=== PATIENT | male | born 1935 | race Caucasian/White ===

== ENCOUNTER 2016-11-18 06:19 | Day surgery (SDC) | payer OTHER ==
[2016-11-15 12:50] LABS: HEMATOCRIT 45.6 % (40.0-51.0); HEMOGLOBIN 14.8 g/dL (13.6-17.8)
[2016-11-15 13:05] LABS: BUN (BLOOD UREA NITROGEN) 23 MG/DL (6-23); CALCIUM, SERUM 9.6 MG/DL (8.5-10.4); CHLORIDE, SERUM 108 MMOL/L (96-112); CO2 (CARBON DIOXIDE) 29 MMOL/L (24-34); CREATININE 1.63 MG/DL (0.70-1.30); GFR AFRICAN AMERICAN 45 ML/MIN (>=60); GFR NON AFRICAN AMERICAN 39 ML/MIN (>=60); GLUCOSE, SERUM 90 MG/DL (60-99); POTASSIUM, SERUM 4.6 MMOL/L (3.5-5.3); SODIUM, SERUM 141 MMOL/L (135-148)
--- NOTE | ~2016-11-18 | OP ---
Record Of Operation [facility] [address] [place]. [address] NAME: TIM HALL : 33 STATUS : [facility]#: [id number] AGE: 81 ADM/REG DATE : 11/18/16 MR#: [id number] REPORT SERV DATE: 11/18/16 DICTATED BY: Abril ORTIZ DATE: 11/18/16 REPORT STATUS : Draft TRANSCRIBED BY: MODBenny DATE: 11/18/16 DATE OF PROCEDURE: 11/18/2016 PREOPERATIVE DIAGNOSES: 1. Left distal ureteral stone. 2. Bladder tumor. 3. History of prostate cancer. POSTOPERATIVE DIAGNOSES: 1. Left distal ureteral stone. 2. Left anterior bladder wall tumor. 3. History of prostate cancer. PROCEDURES: 1. Cystoscopy, left retrograde pyelography, ureteral dilation, ureteroscopy, left double-J stent placement. 2. TURBT (2 to 3 cm lesion). 3. Examination under anesthesia. DRAINS: 1. 7-Czech x 22 cm left contour double-J stent. 2. 22-Czech two-way Hewitt catheter. BRIEF HISTORY: Mr. Hall is an 81-year-old white male, seen by me recently with gross hematuria. CT urogram showed a 4 mm left distal ureteral stone without significant obstruction, bilateral renal cysts. He also had some BPH. Office cystoscopy showed a 2 to 3 cm papillary tumor on the anterior bladder wall. He also gave a history of prostate cancer although no pathology was noted. His PSA was 16.8. We discussed the options and decided proceed with cysto, retrograde, possible ureteroscopy with stone extraction, stent placement, and TURBT. The risks of bleeding, infection, anesthesia, injury to adjacent organs, need for stent, inability to eradicate disease, etc., were discussed. There were no unanswered questions. DESCRIPTION OF PROCEDURE: Under excellent general anesthesia, the patient was prepped and draped in the standard lithotomy position. Digital exam revealed a 2+ to 3+ symmetric prostate gland with some induration on the right in the mid gland area. He had a normal- appearing penis and a nondistended lower abdomen. Cystoscopy was performed with the 30 and 70 degree lens, that revealed a normal anterior urethra. Posterior urethra showed trilobar BPH with some intravesicular extension. He had mild to moderate trabeculation throughout and his orifices were fairly difficult to find. I ultimately found the left orifice but was not able to cannulate it with a cone-tipped catheter. I inserted an angled glidewire through a 5-Czech open-ended ureteral catheter and advanced the ureteral catheter to the level of the kidney. The kidney appeared nondilated with contrast injection. I reinserted the wire and could see a stone alongside it at the level noted on CT scan. I tried to insert the inner cannula of a 9/11 ureteral access sheath, but was unsuccessful in dilating more than about a centimeter of his ureter. I did not know if this was due to the stone or simply a tightened Record Of Operation [address] [place]. [address] NAME: TIM HALL : 33 STATUS : [facility]#: [id number] AGE: 81 ADM/REG DATE : 11/18/16 MR#: [id number] REPORT SERV DATE: 11/18/16 DICTATED BY: Abril ORTIZ DATE: 11/18/16 REPORT STATUS : Draft TRANSCRIBED BY: LUIS DATE: 11/18/16 intravesical ureter, but I did not want to proceed any further given the fact that we had to proceed with a bladder tumor resection. I therefore placed a 7-Czech x 22 cm Contour double-J stent which coiled nicely in the renal pelvis and bladder. We will plan on delayed stone therapy. I then directed myself to the tumor which was on the left anterior wall in a very difficult location. I resected it gently with the biopsy forceps and took the first specimen as left anterior bladder wall tumor. It had a papillary appearance with a moderate-sized stalk and appeared low grade. I then took the specimen as tumor base and using the Bugbee electrode, thoroughly fulgurated the tumor site. No visible tumor was left. I inserted a 22-Czech two-way Hewitt catheter and planned to discharge Mr. Hall as an outpatient with the following instructions: DISCHARGE INSTRUCTIONS: 1. Home today with Hewitt catheter. Okay to remove that in two days either in my office or at home. 2. Follow up in my office in one week to review pathology and consider further stone management. 3. Hydrocodone 5/325 one to two p.o. q.4 hours p.r.n. pain, #20 and Pyridium 200 mg one p.o. t.i.d. p.r.n. bladder pain, #15 with three refills. 4. He is also interested in pursuing further evaluation of his prostate cancer as I told him it would be helpful if he could get his previous pathology report and any PSAs so we can try to make sense of things and will go from there after we have taken care of his acute urologic needs. KARINA/LUIS Abril Ortiz M.D. / [id number] CC: Rene Farah M.D.
[~2016-11-18 06:19] MED LIST: ASA5GR PO; CO Q-10100 MG PO; FISH OIL1200 MG PO; GLUCCHONDR PO; LEVOTHYROXIN100 MCG PO; LIPITOR20 PO; LOP25 PO; LYSINE1000 MG PO; MULTIPLE VIT PO; NIACIN 500 PO; NORV5 PO; PLAVIX PO; VITAMIN B-121000 MC1 SL; garlic PO; milk thistle PO
[2016-11-22] MEDS ORDERED: T PO (11:40)
[2016-11-22] MEDS ORDERED: NORCO1 TA1 PO (11:40)
== END 2016-11-18 14:12 | disposition home or self-care (01) ==
LOC: SDC 06:19
PROC: 0T778DZ Dilation of Left Ureter with Intraluminal Device, Via Natural or Artificial Opening Endoscopic (ICD-10-PCS; principal; 2016-11-18 08:45)
PROC: 0T5B8ZZ Destruction of Bladder, Via Natural or Artificial Opening Endoscopic (ICD-10-PCS; 2016-11-18 08:45)
DX: C67.3 Malignant neoplasm of anterior wall of bladder (principal); N20.1 Calculus of ureter; N40.0 Benign prostatic hyperplasia without lower urinary tract symptoms; I10 Essential (primary) hypertension; I25.10 Atherosclerotic heart disease of native coronary artery without angina pectoris; E78.00 Pure hypercholesterolemia, unspecified; Z85.46 Personal history of malignant neoplasm of prostate; Z85.828 Personal history of other malignant neoplasm of skin; Z95.1 Presence of aortocoronary bypass graft; Z79.82 Long term (current) use of aspirin; Z79.899 Other long term (current) drug therapy; Z98.890 Other specified postprocedural states
CPT/HCPCS: 74420; 80048; 85014; 85018; 88307; 93005; C1758; C1769; C1894; C2617; J2250; J2405; J2710; J3010; Q9967

== ENCOUNTER 2016-11-25 08:36 | Day surgery (SDC) | payer OTHER ==
--- NOTE | ~2016-11-25 | OP ---
Record Of Operation [facility] [address] [place]. [address] NAME: TIM HALL : 33 STATUS : [facility]#: [id number] AGE: 81 ADM/REG DATE : 11/25/16 MR#: [id number] REPORT SERV DATE: 11/25/16 DICTATED BY: Abril ORTIZ DATE: 11/25/16 REPORT STATUS : Draft TRANSCRIBED BY: MODL DATE: 11/25/16 DATE OF PROCEDURE: 11/25/2016 PREOPERATIVE DIAGNOSES: 1. Left distal ureteral stone. 2. Urinary retention. POSTOPERATIVE DIAGNOSES: 1. Left distal ureteral stone. 2. Urinary retention. PROCEDURES: Cystoscopy, left retrograde pyelography, ureteroscopy, laser lithotripsy, basket stone extraction, removal of left double-J stent, placement of left double-J stent, and placement of Hewitt catheter. ANESTHESIA: General endotracheal. COMPLICATIONS: None. DRAINS: 1. 7-Niuean x 24 cm Contour double-J stent. 2. 22-Niuean two-way Hewitt catheter. BRIEF HISTORY: Mr. Hall is an 81-year-old white male, who underwent cysto retrograde ureteroscopy and stent placement along with a TURBT 1 week ago. He had a low-grade noninvasive bladder tumor, and I was unable to dilate his left ureter and so I placed a stent. He returned to the office 3 days ago in urinary retention and wanted to proceed as quickly as possible with stone extraction. We discussed the risks of bleeding, infection, anesthesia, injury to adjacent organs, need for continued stent, and the fact that we would leave a catheter postoperatively. There were no unanswered questions. DESCRIPTION OF PROCEDURE: Under excellent general anesthesia, the patient was prepped and draped in standard lithotomy position. Cystoscopy performed with the 30-degree lens, revealed a normal urethral trauma from catheter placement and an enlarged median lobe of the prostate as previously noted. The stent was seen emanating from the left orifice. I used a flexible grasper to grab the end of the stent, pulled it to the meatus, and I then placed an angled glidewire through the stent up to the level of the kidney. The stent was removed. Alongside the wire, I then inserted a short rigid ureteroscope and engaged a jackstone- appearing ureteral calculus. I thought may be due to the ureteral dilation, I could remove it primarily, so I engaged it in a nitinol basket, but I was unable to remove it through the distal ureter. I therefore disengaged the stone from the basket and inserted 200 micron holmium YAG laser fiber and completely fragmented the stone into passable or extractable pieces. I then reinserted the basket and retrieved 1 small piece for analysis. I dilutely opacified the collecting system and retrofitted the wire into the cystoscope. I then placed a 7-Niuean x 24 cm Contour double-J stent which coiled nicely in the renal pelvis and redundantly in the bladder. I inserted a 22-Niuean two-way Hewitt catheter with 20 mL of Record Of Operation [address] [address] NAME: TIM HALL : 33 STATUS : [facility]#: [id number] AGE: 81 ADM/REG DATE : 11/25/16 MR#: [id number] REPORT SERV DATE: 11/25/16 DICTATED BY: Abril ORTIZ DATE: 11/25/16 REPORT STATUS : Draft TRANSCRIBED BY: LIUS DATE: 11/25/16 sterile water in the balloon and plan to discharge Mr. Hall as an outpatient with the following instructions: DISCHARGE INSTRUCTIONS: 1. Home today with the catheter. 2. No new medicines at this time. 3. I think the best plan will be to follow up in my office in about one week. We will take out his catheter, plan flexible cystoscopy and stent removal and then depending upon his clinical course, we will decide on appropriate followup. In about 3 months, he will need office cysto for bladder tumor surveillance as well as another PSA if he can get his prostate cancer information to us, that would be helpful and we will decide on further management of that as well. We can also review his stone analysis in three months or so. KARINA/LUIS Abril Ortiz M.D. / [id number] CC: Rene Farah M.D.
[~2016-11-25 08:36] MED LIST changes: +NORCO1 TA1 PO; +T PO
[2016-11-29 15:46] LABS: STONE COMPOSITION TWO DNR (())
== END 2016-11-25 14:56 | disposition home or self-care (01) ==
LOC: SDC 08:36
PROC: 0T778DZ Dilation of Left Ureter with Intraluminal Device, Via Natural or Artificial Opening Endoscopic (ICD-10-PCS; 2016-11-25)
PROC: 0TF78ZZ Fragmentation in Left Ureter, Via Natural or Artificial Opening Endoscopic (ICD-10-PCS; principal; 2016-11-25 10:15)
DX: N20.1 Calculus of ureter (principal); R33.9 Retention of urine, unspecified; I25.10 Atherosclerotic heart disease of native coronary artery without angina pectoris; Z95.1 Presence of aortocoronary bypass graft; I10 Essential (primary) hypertension; I49.3 Ventricular premature depolarization; Z95.5 Presence of coronary angioplasty implant and graft; Z98.890 Other specified postprocedural states; Z87.442 Personal history of urinary calculi; Z85.46 Personal history of malignant neoplasm of prostate; Z79.899 Other long term (current) drug therapy; Z79.82 Long term (current) use of aspirin; Z79.891 Long term (current) use of opiate analgesic
CPT/HCPCS: 74420; 82365; A9270-GY; C1758; C1769; C1874; J2250; J2405; J2710; J3010; Q9967